=== PATIENT | male | born 2005 | race Hispanic/Latino ===

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

== ENCOUNTER 2023-10-23 10:42 | Emergency (ER) | payer OTHER ==
[~2023-10-23] VITALS: Ht 182.9 cm; Wt 94.3 kg
[~2023-10-23 10:42] MED LIST: AMOX1TAB16 PO
[2023-10-23 11:10] LABS: SARS-CoV-2, RNA, NAAT NEGATIVE SARS CoV-2 (NEGATIVE)
[2023-10-23 11:17] LABS: INFLUENZA TYPE A Negative For Type A (NEGATIVE)
[2023-10-23 11:23] LABS: INFLUENZA TYPE B Positive For Type B (NEGATIVE)
[2023-10-23] MEDS ORDERED: OSEL75 PO (11:48)
[2023-10-23 12:22] VITALS: BP 132/78; PULSE 88; RESP 18; O2SAT 98
== END 2023-10-23 12:23 | disposition home or self-care (01) ==
LOC: EDH 10:42
DX: J10.1 Influenza due to other identified influenza virus with other respiratory manifestations (principal); Z20.822 Contact with and (suspected) exposure to COVID-19; Z90.49 Acquired absence of other specified parts of digestive tract; Z88.8 Allergy status to other drugs, medicaments and biological substances
CPT/HCPCS: 36415; 87635; 87804

== ENCOUNTER 2024-10-15 11:59 | Emergency (ER) | payer SELFPAY ==
[~2024-10-15] VITALS: Ht 185.4 cm; Wt 111.1 kg
[~2024-10-15 11:59] MED LIST changes: +OSEL75 PO
[2024-10-15] MEDS: OCTYL 2-CYANOACRYLATE 1 EACH TP STA (12:14)
[2024-10-15] MEDS ORDERED: AMOX1TAB16 PO (13:06)
--- NOTE | 2024-10-15 13:07 | ERN ---
General Chief Complaint: Laceration/Avulsion Stated Complaint: RIGHT THUMB LACERATION Time Seen by MD: 12:00 Time Seen by Midlevel: 12:00 Source: patient History of Present Illness Initial Comments 19-year-old male who presents to the emergency department due to a laceration to the right thumb. Patient reports he was at work and cut himself with a knife. Denies further associated symptoms or injuries. Reports to be up-to-date with all vaccinations even tetanus. Denies significant past medical history. Allergies: Coded Allergies: vancomycin (Unverified Allergy, Unknown, HIVES, 01/06/22) Home Meds Active Scripts Amoxicillin/Potassium Clav (Amox Tr-K Clv 875-125 mg Tab) 875 Mg-125 Mg Tablet, 1 EACH PO BID for 5 Days, #10 TAB 0 Refills Prov:NAHID CISNEROS 10/15/24 Oseltamivir Phosphate (Tamiflu) 75 Mg Cap, 75 MG PO BID for 5 Days, #10 CAP Prov:GERSON LOVE MD 10/23/23 Amoxicillin/Potassium Clav (Amox Tr-K Clv 875-125 mg Tab) 1 Each Tablet, 1 EACH PO BID for 7 Days, #14 TAB 0 Refills Prov:SANJAY PURVIS 01/08/22 Past Medical History Past Medical History: No Pertinent History Past Surgical History: None Social History Social History: Negative, Other ROS Dictation Constitutional: Negative for fever,chills, and weight loss Eyes: Negative for injury, pain,redness, and discharge ENT: Negative for injury,pain or swelling Cardiovascular: Negative for chest pain, palpitations, and edema Respiratory: Negative for shortness of breath, cough, and wheezing, Abdomen/GI: Negative for abdominal pain, nausea, vomiting, diarrhea, and constipation Back: Negative for injury and pain : Negative for painful urination, bleeding or discharge MS/Extremity: Negative for injury and deformity Skin: Positive for skin laceration right thumb Negative for rash, and discoloration Neuro: Negative for headache, weakness, numbness, tingling, and seizure Psych: Negative for suicide ideation, homicidal ideation, and hallucinations Physical Exam Physical Exam Dictation General: awake, alert, no acute distress Head/Face: Normocephalic, atraumatic Eyes: PERRL, EOMI, normal conjunctiva ENT: oral cavity clear, oral mucosa moist Neck: Supple, normal range of motion Cardiovascular: RRR, normal S1/S2 Respiratory: CTAB, no respiratory distress, no rales or wheezes Skin: Warm, dry, normal turgor, no rash. Right thumb skin avulsion to the lateral aspect MS/Extremity: Pulses equal, no cyanosis, neurovascular intact, FROM Neuro: COAx4, GCS 15, strength 5/5, CN 2-12 intact, normal cerebellar exam, normal gait, Psych: Normal behavior, mood, and affect normal MDM MDM: Differential diagnosis: Laceration, avulsion, abrasion Rationale: 19-year-old male who presents to the emergency department due to a laceration to the right thumb. Patient reports he was at work and cut himself with a knife. Denies further associated symptoms or injuries. Reports to be up-to-date with all vaccinations even tetanus. Denies significant past medical history. Per physical examination skin avulsion noted to the lateral aspect of the right thumb, neurovascularly intact, full range of motion. Wound was cleansed and quick clot was applied. Once bleeding was controlled Dermabond applied over. Patient was educated on findings and diagnosis. Advised to follow up with PCP. Return to the emergency department if any worsening symptoms. Patient verbalized understanding. Patient stable for discharge. There are no social concerns with this patient. I independently interpreted the test that were performed, results were reviewed by me and considered findings on radiology if ordered. Medical management and examination interpretation discussions were had by me with other qualified healthcare professionals as indicated for the patient's care. ED Course Orders Procedure Category Date Status Time Dermabond (Dermabond) PHA 10/15/24 Complete 12:10 Current Medications Medications (Trade) Dose Ordered Sig/Raul Route PRN Reason Start Time Stop Time Status Last Admin Dose Admin Octyl Cyanoacrylate (Dermabond) 1 each ONCE STAT TP 10/15/24 12:10 10/15/24 12:12 DC 10/15/24 12:14 Vital Signs Date Time Temp Pulse Resp B/P (MAP) Pulse Ox O2 Delivery O2 Flow Rate FiO2 10/15/24 13:42 98.2 60 16 120/66 98 Room Air* 0 N/A Nasal Cannula* 10/15/24 12:20 98.1 52 16 120/70 98 Room Air* 0 21 10/15/24 11:59 98.1 52 20 125/75 99 Room Air 0 DX & DISP Disposition: Discharge Departure Impression: Primary Impression: Avulsion of skin of finger Condition: Stable Scripts Amoxicillin/Potassium Clav (Amox Tr-K Clv 875-125 mg Tab) 875 Mg-125 Mg Tablet 1 EACH PO BID for 5 Days, #10 TAB 0 Refills Prov: NAHID CISNEROS 10/15/24 Additional Instructions: Discharge home. Rest. Follow up with primary care DrCricket in 24 hours. Return to the ER for any acute changes or worsening symptoms. If any medications were prescribed take as directed. Okay to continue home medications unless otherwise discussed during your visit in the emergency room today. Patient was also advised to follow-up with primary care physician in 1 to 2 days for continued monitoring. Referrals: SELF,REFERRAL (PCP) I performed the substantive portion of the visit. I have reviewed and personally made and approve the management plan that is documented in the notes by myself or the LISBETH. I acknowledge full responsibility for the patient's management plan. NAHID CISNEROS Oct 15, 2024 13:07 IRAIDA SARAH DO Oct 16, 2024 07:37
[2024-10-15 13:42] VITALS: BP 120/66; PULSE 60; RESP 16; TEMP 98.3; O2SAT 98
--- NOTE | 2024-10-15 13:49 | NUR ---
WOUND CLEANED AND CLOSED DERMABOND
== END 2024-10-15 13:50 | disposition home or self-care (01) ==
LOC: EDH 11:59
DX: S61.011A Laceration without foreign body of right thumb without damage to nail, initial encounter (principal); Z79.899 Other long term (current) drug therapy; Z88.1 Allergy status to other antibiotic agents; W26.0XXA Contact with knife, initial encounter; Y93.89 Activity, other specified; Y92.89 Other specified places as the place of occurrence of the external cause; Y99.8 Other external cause status
CPT/HCPCS: 12001; 99283

== ENCOUNTER 2025-06-18 10:13 | Emergency (ER) | payer SELFPAY ==
[~2025-06-18] VITALS: Ht 182.9 cm; Wt 108.9 kg
[2025-06-18 10:16] VITALS: BP 131/80; PULSE 92; RESP 18; TEMP 98.1
--- NOTE | 2025-06-18 10:21 | ERN ---
General Chief Complaint: Constipation Stated Complaint: CONSTIPATION Time Seen by MD: 10:18 Source: patient History of Present Illness Initial Comments Patient is a 20-year-old male coming in complaining of constipation. Per patient he has not been able to defecate and tried two days ago was unsuccessful. He attributes this constipation to taking antibiotics. Allergies: Coded Allergies: vancomycin (Unverified Allergy, Unknown, HIVES, 01/06/22) Home Meds Active Scripts Amoxicillin/Potassium Clav (Amox Tr-K Clv 875-125 mg Tab) 875 Mg-125 Mg Tablet, 1 EACH PO BID for 5 Days, #10 TAB 0 Refills Prov:NAHID CISNEROS 10/15/24 Oseltamivir Phosphate (Tamiflu) 75 Mg Cap, 75 MG PO BID for 5 Days, #10 CAP Prov:GERSON LOVE MD 10/23/23 Amoxicillin/Potassium Clav (Amox Tr-K Clv 875-125 mg Tab) 1 Each Tablet, 1 EACH PO BID for 7 Days, #14 TAB 0 Refills Prov:SANJAY PURVIS 01/08/22 Past Medical History Past Medical History: Asthma Past Surgical History: Appendectomy Social History Social History: Negative, Other ROS Dictation CONSTITUTIONAL: No chills, no fever, no weakness, no diaphoresis, no malaise. HEAD/FACE: No signs of trauma. EENT: No eye pain, no blurred vision, no tearing, no double vision, no ear pain, no ear discharge, no nose pain, no nasal congestion, no throat pain, no throat swelling, no mouth pain. RESPIRATORY: No cough, no orthopnea, no SOB, no stridor, no wheezing. CARDIOVASCULAR: No chest pain, no edema, no palpitations, no syncope. GASTROINTESTINAL/ABDOMINAL: no abdominal pain, constipation, no diarrhea, no nausea, no vomiting. GENITOURINARY: No abnormal discharge, no dysuria, no frequent urination, no hematuria. No complaints of pain in the genitals. MUSCULOSKELETAL: No back pain, no gout, no joint pain, no joint swelling, no muscle pain, no muscle stiffness, no neck pain. INTEGUMENTARY: No change in color, no change in hair/nails, no dryness, no lesion, no lumps, no rash. NEUROLOGICAL/PSYCH: No anxiety, not depressed, no emotional problem, no headache, no numbness, no pre-existing deficit, no history of seizures, no tremors, no weakness. HEMATOLOGIC/LYMPHATIC: Not anemic, no history of blood clots, no apparent bleeding, no bruising, glands not swollen. All Systems Negative, Except as Noted. Physical Exam Physical Exam Dictation VITAL SIGNS: Reviewed. GENERAL APPEARANCE: Alert, oriented x3, no acute distress, obese. HEAD AND FACE: Non-traumatic. EYES: PERRL, pink conjunctivas, eyelid no trauma, anterior chamber clear. EARS: Pinnas intact and no signs of trauma or erythema. Ear canals clear and no discharge. TMs no erythema. NOSE: No discharge, no bleeding. OROPHARYNX: Mouth normal, teeth no caries, tongue pink. Pharynx clear, no erythema. Tonsils no exudates, no abscesses noted. Mucous membrane moist. NECK: Supple, non-tender, no thyromegaly, no masses, no JVD, no bruits. BREAST: Deferred. CHEST: No tenderness, no crepitus, no paradoxical movement, no retractions. LUNGS: Clear, well-ventilated, symmetric, no rales, no wheezing, no rhonchi, no stridor, good breath sounds bilaterally. HEART: Regular rate, regular rhythm, no murmur, no gallops. VASCULAR: No peripheral edema. ABDOMEN: Soft, positive bowel sounds, nondistended, no guarding, nontender, no rebound, no masses no hepatomegaly, no splenomegaly, no Stauffer's sign, no hernias. RECTAL: Deferred. GENITAL: Deferred. NEUROLOGICAL: Normal speech, gross motor function intact, gross sensory function intact. MUSCULOSKELETAL: Neck nontender, full range of motion, back nontender, full range of motion. EXTREMITIES: Nontender, full range of motion. SKIN: Color pink, dry, no turgor, no rash, no lacerations, no abrasions, no contusions. LYMPHATICS: Deferred. Results Laboratory and Microbiology Labs Reviewed?: Yes MDM MDM: Differential diagnosis: Constipation Rationale: Tests considered and ordered secondary to shared decision making include: Previous outside records reviewed: Old ER visits. Risk of complication and/or morbidity or mortality of patient management: None Medications-Per medication reconciliation Need for hospitalization: Patient does not meet criteria for hospitalization. Need for emergency major/minor surgery: No [facility] is a 20[facility] received [facility] for the patient. Patient will be discharged in stable condition with a diagnosis of constipation medication provided for ongoing symptomatic relief. Also advised him appropriate follow up with PCP for long- term management. ED Course Orders Procedure Category Date Status Time Magnesium Citrate PHA 06/18/25 Complete (Magnesium Citrate) 10:30 Lactulose 20 Gm/30 Ml PHA 06/18/25 Complete Udcup (Constulose 10:30 Current Medications Medications (Trade) Dose Ordered Sig/Raul Route PRN Reason Start Time Stop Time Status Last Admin Dose Admin Lactulose (Constulose 20gm/ 30ml Udcup) 20 gm ONCE ONCE PO 06/18/25 10:30 06/18/25 10:31 DC 06/18/25 10:54 Magnesium Citrate (Magnesium Citrate) 296 ml ONCE ONCE PO 06/18/25 10:30 06/18/25 10:31 DC 06/18/25 10:54 Vital Signs Date Time Temp Pulse Resp B/P (MAP) Pulse Ox O2 Delivery O2 Flow Rate FiO2 06/18/25 10:16 98.1 92 18 131/80 98 Room Air DX & DISP Disposition: Discharge Departure Impression: Primary Impression: Constipation Condition: Stable Scripts Lactulose (Lactulose) 10 Gram/15 Ml Solution 30 ML PO BID for constipation, #500 ML 0 Refills Prov: GERSON LOVE MD 06/18/25 Additional Instructions: FOLLOW-UP WITH PRIMARY CARE PROVIDER IN 1 TO 2 DAYS. TAKE MEDICATIONS DIRECTED HERE IN THE EMERGENCY ROOM. OKAY TO CONTINUE HOME MEDICATIONS UNLESS OTHERWISE DISCUSSED DURING YOUR VISIT IN THE EMERGENCY ROOM TODAY. RETURN TO Y OUR NEAREST EMERGENCY ROOM IF SYMPTOMS WORSEN OR IF THERE IS NO IMPROVEMENT. CALL 911 IF YOU NEED IMMEDIATE ASSISTANCE. TAKE TYLENOL [id number] NEEDED AND IF NO CONTRAINDICATIONS ARE PRESENT. INCREASE ORAL HYDRATION. A WOUND CULTURE OR URINE CULTURE WAS ORDERED HERE IN THE EMERGENCY ROOM DEPARTMENT PLEASE FOLLOW-UP WITH PRIMARY CARE PROVIDER AND ADVISE THEM TO GET REPORTS FROM OUR FACILITY. IF YOU HAD ANY CARRILLO WRAP/SPLINTS THAT WERE APPLIED HERE, PLEASE DO NOT REMOVE THEM UNTIL YOU SEE YOUR PRIMARY CARE OR SPECIALTY. Referrals: Referrals: SELF,REFERRAL (PCP) ULI CALVIN MD Time of Disposition: 11:20 GERSON LOVE MD Jun 18, 2025 10:21
[2025-06-18] MEDS: MAGNESIUM CITRATE 296 ML SOLUTION PO ONE (10:54)
[2025-06-18] MEDS: LACTULOSE 20 GM/30 ML UDCUP PO ONE (10:54)
[2025-06-18] MEDS ORDERED: LACT10SO85 PO (11:21)
--- NOTE | 2025-06-18 11:33 | NUR ---
PT REPORTS LARGE BM POST LAXATIVES
== END 2025-06-18 11:31 | disposition home or self-care (01) ==
LOC: EDH 10:13
DX: K59.00 Constipation, unspecified (principal); J45.909 Unspecified asthma, uncomplicated; Z88.1 Allergy status to other antibiotic agents; Z90.49 Acquired absence of other specified parts of digestive tract
CPT/HCPCS: 99283